=== PATIENT | female | born 1985 | race Caucasian/White ===

== ENCOUNTER 2017-07-20 11:54 | Emergency (ER) | payer MEDICAID ==
[~2017-07-20] VITALS: Ht 157.5 cm; Wt 77.0 kg
[2017-07-20] MEDS ORDERED: HYDROcodone/APAP 5/325 TABLET PO ONE (13:00)
[2017-07-20] MEDS ORDERED: ONDANSETRON ODT 4 MG PO ONE (13:00)
[2017-07-20 13:04] LABS: HEMATOCRIT 36.8 % (34.6-47.8); HEMOGLOBIN 11.9 g/dL (11.7-16.4)
[2017-07-20] MEDS ORDERED: ONDANSETRON ODT 4 MG ONE (13:13)
[2017-07-20] MEDS ORDERED: HYDROcodone/APAP 5/325 TABLET ONE (13:13)
[2017-07-20 13:14] LABS: ASPARTATE AMINO TRANSFERASE 16 U/L (15-37); BLOOD UREA NITROGEN 12 mg/dL (7-18)
[2017-07-20 14:12] VITALS: BP 136/102
== END 2017-07-20 16:01 | disposition home or self-care (01) ==
LOC: ED 13:04
DX: R10.31 Right lower quadrant pain (principal); N83.201 Unspecified ovarian cyst, right side; I10 Essential (primary) hypertension; N83.202 Unspecified ovarian cyst, left side
CPT/HCPCS: 36415; 76830; 80053; 81001; 83690; 84703; 85025; 87086; 99285; Q0162

== ENCOUNTER 2017-07-29 00:13 | Inpatient (IN) | payer MEDICAID ==
[~2017-07-29] VITALS: Ht 158.8 cm; Wt 86.5 kg
[2017-07-29] VITALS (12 sets, daily range): BP systolic 102–115; BP diastolic 67–82
[2017-07-29] MEDS ORDERED: SODIUM CHLORIDE 0.9% 1,000ML IVBOLUS ONE ×2 (00:30→01:30)
[2017-07-29] MEDS ORDERED: ONDANSETRON 2MG/ML, 2ML IVPush ONE (00:30)
[2017-07-29] MEDS ORDERED: MORPHINE SULFATE 4 MG/ML, 1ML IVPush PRN (00:30)
[2017-07-29] MEDS ORDERED: SODIUM CHLORIDE FLUSH 10ML SYR IVF ONE (00:30)
[2017-07-29 01:17] LABS: HEMATOCRIT 26.5 % (34.6-47.8); HEMOGLOBIN 8.5 g/dL (11.7-16.4); WHITE BLOOD COUNT 9.3 x10^3/uL (3.4-10)
[2017-07-29] MEDS ORDERED: ONDANSETRON 2MG/ML, 2ML ONE (01:27)
[2017-07-29] MEDS ORDERED: MORPHINE SULFATE 4 MG/ML, 1ML ONE (01:27)
[2017-07-29 01:29] LABS: BLOOD UREA NITROGEN 13 mg/dL (7-18)
[2017-07-29] MEDS ORDERED: ONDANSETRON 2MG/ML, 2ML IVPush PRN (02:30)
[2017-07-29] MEDS ORDERED: morphine SULFATE 10 MG/ML, 1ML IVPush PRN (02:30)
[2017-07-29] MEDS ORDERED: PANTOPRAZOLE 40 MG IV ONE (06:40)
[2017-07-29] MEDS: SODIUM CHLORIDE 0.9% 1,000 ML IV SCH ×3 (06:47→19:25)
[2017-07-29] MEDS: PANTOPRAZOLE 40 MG IV IVPush SCH (06:47)
[2017-07-29] MEDS ORDERED: POTASSIUM CHLORIDE 20 MEQ TAB.ER.PRT PO ONE (08:00)
[2017-07-29] MEDS ORDERED: POTASSIUM CHLORIDE 20 MEQ TAB.ER.PRT ONE (08:03)
[2017-07-29] MEDS ORDERED: ACETAMINOPHEN 325 MG TABLET PO PRN (15:00)
[2017-07-29] MEDS: HYDROcodone/APAP 5/325 TABLET PO PRN ×2 (15:18→19:26)
[2017-07-29 16:28] LABS: HEMATOCRIT 32.5 % (34.6-47.8); HEMOGLOBIN 10.8 g/dL (11.7-16.4)
[2017-07-30 02:26] VITALS: BP 101/60
[2017-07-30] MEDS: SODIUM CHLORIDE 0.9% 1,000 ML IV SCH ×2 (04:12→12:05)
[2017-07-30 07:54] VITALS: BP 120/88
[2017-07-30] MEDS: PANTOPRAZOLE 40 MG IV IVPush SCH (08:35)
[2017-07-30 09:01] LABS: HEMATOCRIT 30.7 % (34.6-47.8); HEMOGLOBIN 10.1 g/dL (11.7-16.4); WHITE BLOOD COUNT 7.7 x10^3/uL (3.4-10)
[2017-07-30 09:12] LABS: BLOOD UREA NITROGEN 6 mg/dL (7-18)
[2017-07-30] MEDS: HYDROcodone/APAP 5/325 TABLET PO PRN (12:05)
[2017-07-30 13:35] VITALS: BP 120/85
== END 2017-07-30 16:55 | disposition home or self-care (01) | DRG 760 ==
LOC: ED 02:24 → EDIP 02:25 → ED 02:25 → 3NE 13:43
PROVIDERS: ADMIT Internal Medicine; ATTEND Internal Medicine
PROC: 30233N1 Transfusion of Nonautologous Red Blood Cells into Peripheral Vein, Percutaneous Approach (ICD-10-PCS; principal; 2017-07-29)
DX: N92.1 Excessive and frequent menstruation with irregular cycle (principal); D62 Acute posthemorrhagic anemia; I10 Essential (primary) hypertension; F17.200 Nicotine dependence, unspecified, uncomplicated; F41.1 Generalized anxiety disorder; N93.9 Abnormal uterine and vaginal bleeding, unspecified
CPT/HCPCS: 36415; 36430; 76830; 80048; 82040; 84703; 85014; 85018; 85025; 85610; 85730; 86850; 86900; 86923; 93005; 96361; 96374; 96375; J2405; C9113; J7030; P9016

== ENCOUNTER 2017-08-18 22:49 | Emergency (ER) | payer MEDICAID ==
[~2017-08-18] VITALS: Ht 160 cm; Wt 81.5 kg
[2017-08-18] MEDS ORDERED: LORazepam 1MG TABLET ONE (23:27)
[2017-08-18] MEDS ORDERED: LORazepam 1MG TABLET PO ONE (23:30)
[2017-08-18 23:34] LABS: HEMATOCRIT 31.8 % (34.6-47.8); HEMOGLOBIN 10.4 g/dL (11.7-16.4); WHITE BLOOD COUNT 9.7 x10^3/uL (3.4-10)
[2017-08-18 23:46] LABS: BLOOD UREA NITROGEN 10 mg/dL (7-18)
[2017-08-19 00:48] VITALS: BP 125/81
== END 2017-08-19 01:03 | disposition home or self-care (01) ==
LOC: ED 23:22
DX: S16.1XXA Strain of muscle, fascia and tendon at neck level, initial encounter (principal); I10 Essential (primary) hypertension; F41.1 Generalized anxiety disorder; X58.XXXA Exposure to other specified factors, initial encounter; Y93.89 Activity, other specified; Y99.8 Other external cause status; Y92.89 Other specified places as the place of occurrence of the external cause
CPT/HCPCS: 36415; 80048; 82040; 84703; 85025; 93005; 99285

== ENCOUNTER 2018-07-29 18:56 | Emergency (ER) | payer MEDICAID ==
[~2018-07-29] VITALS: Ht 158.8 cm; Wt 74.8 kg
[2018-07-29 19:13] VITALS: BP 150/98
[2018-07-29] MEDS ORDERED: AZITHROMYCIN 500 MG TABLET PO ONE (19:30)
[2018-07-29] MEDS ORDERED: CEFTRIAXONE 250 MG IM ONE (19:30)
[2018-07-29] MEDS ORDERED: LIDOCAINE-MPF 2%, 2ML ONE (20:09)
[2018-07-29] MEDS ORDERED: AZITHROMYCIN 500 MG TABLET ONE (20:09)
[2018-07-29] MEDS ORDERED: CEFTRIAXONE 250 MG ONE (20:10)
[2018-07-29 20:16] LABS: CLUE CELLS NONE SEEN (NONE SEEN); WET PREP WBCS NONE SEEN (FEW)
== END 2018-07-29 20:51 | disposition home or self-care (01) ==
LOC: ED 20:05
DX: A54.02 Gonococcal vulvovaginitis, unspecified (principal); I10 Essential (primary) hypertension; F41.1 Generalized anxiety disorder
CPT/HCPCS: 87210; 87491; 87591; 87808; 96372; 99284; J0696

== ENCOUNTER 2019-01-28 01:03 | Emergency (ER) | payer MEDICAID ==
[~2019-01-28] VITALS: Ht 157.5 cm; Wt 78.4 kg
[2019-01-28 01:28] VITALS: BP 133/96
[2019-01-28] MEDS ORDERED: MEDROXYPROGESTERONE ACETATE 5 MG TABLET PO ONE (02:00)
[2019-01-28 02:18] LABS: BASOPHILS # (AUTO) 0.05 x10^3/uL (0-0.1); BASOPHILS % (AUTO) 1 % (0-1); EOSINOPHILS # (AUTO) 0.12 x10^3/uL (0-0.4); EOSINOPHILS % (AUTO) 1 % (1-7); LYMPHOCYTES # (AUTO) 3.41 x10^3/uL (1-3.4); LYMPHOCYTES % (AUTO) 39 % (22-44); MD NO; MEAN CORPUSCULAR HEMOGLOBIN 23.5 pg (27.0-34.8); MEAN CORPUSCULAR HGB CONC 31.7 g/dL (32.4-35.8); MEAN CORPUSCULAR VOLUME 74.1 fL (80-100); MEAN PLATELET VOLUME 8.9 fL (7.4-10.4); MONOCYTES # (AUTO) 0.57 x10^3/uL (0.2-0.8); MONOCYTES % (AUTO) 7 % (2-9); NEUTROPHILS # (AUTO) 4.52 x10^3/uL (1.8-6.8); NEUTROPHILS % (AUTO) 52 % (42-75); PLATELET COUNT 297 x10^3/uL (130-400); RED BLOOD COUNT 3.79 x10^6/uL (3.82-5.3); RED CELL DISTRIBUTION WIDTH 16.6 % (9.6-15.2)
--- NOTE | 2019-01-28 02:53 | NUR ---
TASK RN: DC EDUCATION PROVIDED, PT DEMONSTRATES UNDERSTANDING. PT AMBULATED STEADILY TO DC WITH RN AND FRIEND
== END 2019-01-28 02:55 | disposition home or self-care (01) ==
LOC: ED 02:00
DX: N93.8 Other specified abnormal uterine and vaginal bleeding (principal); I10 Essential (primary) hypertension
CPT/HCPCS: 36415; 85025; 86850; 86900; 99283

== ENCOUNTER 2019-02-17 01:45 | Emergency (ER) | payer MEDICAID ==
[~2019-02-17] VITALS: Ht 157.5 cm; Wt 78.0 kg
[2019-02-17 01:47] VITALS: BP 131/90
--- NOTE | 2019-02-17 02:00 | NUR ---
PT HERE FOR VB. SEEN HERE LAST MONTH FOR SAME. VSS. PT IN NAD. CALL LIGHT IN REACH
--- NOTE | 2019-02-17 02:26 | NUR ---
Patient given discharge instructions and they have confirmed that they understand the instructions. Patient ambulatory with steady gait.
== END 2019-02-17 02:29 | disposition other institution (70) ==
LOC: ED 02:00
DX: N93.8 Other specified abnormal uterine and vaginal bleeding (principal); F41.1 Generalized anxiety disorder; I10 Essential (primary) hypertension; F17.210 Nicotine dependence, cigarettes, uncomplicated
CPT/HCPCS: 99283